=== PATIENT | female | born 1995 | race Caucasian/White ===

== ENCOUNTER 2019-09-04 16:26 | Emergency (ER) | payer OTHER ==
[~2019-09-04] VITALS: Ht 160 cm; Wt 72.6 kg
[~2019-09-04 16:26] MED LIST: BIRTH CONTROL PO; IBUPROFEN 800800 M1 PO; ZOFRAN ODT4 MG PO
[2019-09-04 17:02] LABS: HEMATOCRIT 46.9 % (37.0-47.0); HEMOGLOBIN 15.9 gm/dL (12.0-15.0); MCH 29.5 pg (26.0-34.0); MCHC 33.9 g/dL (28.0-37.0); MPV 7.8 fl. (7.2-11.1); NUCLEATED RBCS 0 /100WBC; PLATELET COUNT* 255 thou/uL (150-400); RBC 5.39 mil/uL (4.20-5.00); RDW-CV 13.1 % (10.5-14.5); WBC 12.2 thou/uL (4.0-11.0)
[2019-09-04 17:04] LABS: URINE BLOOD NEGATIVE (Negative); URINE CLARITY CLOUDY; URINE COLOR YELLOW; URINE GLUCOSE-RANDOM NEGATIVE (Negative); URINE KETONES 1+ (Negative); URINE LEUKOCYTES-REFLEX NEGATIVE (Negative); URINE NITRITE-REFLEX NEGATIVE (Negative); URINE PROTEIN TRACE (Negative); URINE SPECIFIC GRAVITY >= 1.030 (1.005-1.030); URINE UROBILINOGEN 0.2 E.U./dl (0.2-1.0)
[2019-09-04 17:08] LABS: ICTOTEST (BILI CONFIRMATORY) Negative (Negative); URINE BILIRUBIN 1+ (Negative)
[2019-09-04 17:10] LABS: CALCIUM 8.8 mg/dL (8.5-10.1)
[2019-09-04 17:14] LABS: ALBUMIN 4.4 g/dL (3.4-5.0); TOTAL BILIRUBIN 0.7 mg/dL (<0.1-1.0); TOTAL PROTEIN 7.9 g/dL (6.4-8.2)
[2019-09-04 17:19] LABS: INFLUENZA A ANTIGEN Negative (Negative); INFLUENZA B ANTIGEN Negative (Negative)
[2019-09-04 17:42] LABS: ABSOLUTE LYMPHOCYTES 0.7 thou/uL (0.8-5.3); ABSOLUTE MONOCYTES 0.7 thou/uL (0.0-1.2); ABSOLUTE NEUTROPHILS 10.7 thou/uL (1.6-8.1)
[2019-09-04 17:43] LABS: PLATELET ESTIMATE ADEQUATE
[2019-09-04 17:49] LABS: SQUAMOUS 0-3 Few /LPF (0-3); URINE WBC-REFLEX 0-5 Rare /HPF (0-5)
[2019-09-04 17:50] LABS: AMORPHOUS URATES Many /LPF (None Seen); BACTERIA-REFLEX 1-9 Few /HPF (None Seen); CASTS None Seen /LPF (None Seen); CRYSTALS None Seen /LPF (None Seen); MUCUS None Seen strn/LPF (None Seen); URINE RBC None Seen /HPF (0-2)
[2019-09-04] MEDS ORDERED: HYDROCODON-ACE1 EAC7 PO (18:25)
[2019-09-04] MEDS ORDERED: ZOFRAN ODT4 MG PO (18:25)
[2019-09-04 18:53] VITALS: BP 124/81
== END 2019-09-04 18:55 | disposition home or self-care (01) ==
LOC: M.ERS 16:26
PROVIDERS: Personal Emergency Response Attendant
DX: K52.9 Noninfective gastroenteritis and colitis, unspecified (principal)